=== PATIENT | female | born 1990 | race Caucasian/White ===

== ENCOUNTER → 2018-08-03 | Outpatient (REF) | payer SELFPAY, OTHER | LOC: M LAB REF 18:38 | DX: R10.815 Periumbilic abdominal tenderness (principal) ==

== ENCOUNTER → 2019-11-24 | Outpatient (CLI) | payer OTHER ==
[2019-11-24 18:33] LABS: BASO % 0.2 % (0.0-1.0); EOS % 0.2 % (0.0-3.0); HEMATOCRIT 45.1 % (36.0-47.0); HEMOGLOBIN 15.2 g/dl (12.0-15.5); LYMPH # 2.4 10^3/uL (1.5-5.0); LYMPH % 18.9 % (24.0-44.0); MEAN CORPUSCULAR HEMOGLOBIN 30.2 pg (27.0-33.0); MEAN CORPUSCULAR HGB CONC 33.7 g/dl (32.0-36.5); MEAN CORPUSCULAR VOLUME 89.7 fl (80.0-96.0); MONO # 0.8 10^3/uL (0.0-0.8); MONO % 6.5 % (0.0-5.0); NEUTROPHILS # 9.5 10^3/uL (1.5-8.5); NEUTROPHILS % 73.9 % (36.0-66.0); PLATELET COUNT, AUTOMATED 261 10^3/uL (150-450); RED BLOOD COUNT 5.03 10^6/uL (4.00-5.40); WHITE BLOOD COUNT 12.8 10^3/uL (4.0-10.0)
[2019-11-24 23:40] LABS: CHLAMYDIA DNA AMPLIFICATION NEGATIVE (NEGATIVE); GC DNA AMPLIFICATION NEGATIVE (NEGATIVE)
[2019-11-25 11:19] LABS: HEPATITIS C VIRUS ABY INDEX < 0.0 INDEX (<0.8); HIV 1&2 SCREEN CENTAUR NEGATIVE (NEGATIVE); RUBELLA IgG QUALITATIVE SUSCEPTIBLE (IMMUNE)
== END ==
LOC: M PLALAB 14:10
PROVIDERS: ATTEND Advanced Practice Midwife
DX: Z34.01 Encounter for supervision of normal first pregnancy, first trimester (principal)

== ENCOUNTER → 2020-02-02 | Outpatient (CLI) | payer OTHER ==
--- NOTE | 2020-02-03 04:49 | REP ---
Clinical: Anatomical evaluation. Comparison: None . Findings: Examination demonstrates a single live intrauterine in transverse (with head to maternal left) presentation. motion is identified by technologist. Placenta is noted fundal and grade zero without evidence for placenta previa or abruption. Amniotic fluid volume is normal. Cervix measures 3.4 cm in length and appears closed. No evidence for nuchal cord. Gestational age by current measurements 19 weeks 4 days with HERON 06/24/2020 . FHR equals 138 beats per minute. BPD 4.6 cm 20 weeks 0 days HC 17.0 cm 19 weeks 4 days AC 14.3 cm 19 weeks 4 days FL 3.1 cm 19 weeks 5 days HL 2.9 cm 19 weeks 4 days HC/AC ratio 1.19 Estimated weight 307 grams ( 51st percentile). Anatomical assessment demonstrates normal structures including cranium, choroid plexus, cavum, cerebellum/posterior fossa, facial features, lungs, four-chamber heart/ventricular outflow tracts, diaphragm, stomach, cord insertion/three-vessel cord, kidneys/bladder, spine, and extremities. Impression: Single live intrauterine in transverse lie demonstrating appropriate estimated weight. Anatomical assessment is complete and normal. No gross abnormalities are identified.
== END ==
LOC: M WHC 08:49
PROVIDERS: ATTEND Specialist
DX: Z34.82 Encounter for supervision of other normal pregnancy, second trimester (principal)

== ENCOUNTER → 2020-04-04 | Outpatient (REF) | payer OTHER ==
[2020-04-04 12:11] LABS: HEMATOCRIT 42.8 % (36.0-47.0); HEMOGLOBIN 14.6 g/dl (12.0-15.5); MEAN CORPUSCULAR HEMOGLOBIN 32.2 pg (27.0-33.0); MEAN CORPUSCULAR HGB CONC 34.1 g/dl (32.0-36.5); MEAN CORPUSCULAR VOLUME 94.3 fl (80.0-96.0); PLATELET COUNT, AUTOMATED 246 10^3/uL (150-450); RED BLOOD COUNT 4.54 10^6/uL (4.00-5.40); WHITE BLOOD COUNT 10.3 10^3/uL (4.0-10.0)
== END ==
LOC: M PLALAB 09:04
PROVIDERS: ATTEND Advanced Practice Midwife
DX: Z36.89 Encounter for other specified antenatal screening (principal)
CPT/HCPCS: 36415; 82950; 85027; 86850; 86900; 86901; J2790

== ENCOUNTER → 2020-05-31 | Outpatient (REF) | payer OTHER | LOC: M SFHCWAGY 11:38 | PROVIDERS: ATTEND Advanced Practice Midwife | DX: Z34.80 Encounter for supervision of other normal pregnancy, unspecified trimester (principal); Z3A.00 Weeks of gestation of pregnancy not specified | CPT/HCPCS: 87081; 87186; G0463 ==

== ENCOUNTER 2020-06-29 22:05 | Inpatient (IN) | payer OTHER ==
[~2020-06-29] VITALS: Ht 170.2 cm; Wt 87.7 kg
[2020-06-29 22:27] VITALS: BP 125/80
[2020-06-29] MEDS ORDERED: LACTATED RINGER'S 1000 ML IV STA (23:21)
[2020-06-29] MEDS ORDERED: PENICILLIN G POTASSIUM IV 5 MU in D5W MINI-BAG PLUS 100 ML IV STA (23:21)
[2020-06-29 23:50] LABS: HEMATOCRIT 37.8 % (36.0-47.0); HEMOGLOBIN 13.6 g/dl (12.0-15.5); MEAN CORPUSCULAR VOLUME 88.9 fl (80.0-96.0); PLATELET COUNT, AUTOMATED 212 10^3/uL (150-450); RED BLOOD COUNT 4.25 10^6/uL (4.00-5.40); WHITE BLOOD COUNT 18.4 10^3/uL (4.0-10.0)
[2020-06-29] MEDS: LR 1,000 ML IV SCH (23:50)
[2020-06-30] VITALS (59 sets, daily range): BP systolic 86–137; BP diastolic 44–88
[2020-06-30] MEDS ORDERED: FENTANYL 2MCG/ML ROPIVACAINE 0.2% IN 0.9% NACL 100ML IVBAG As Ordered ONE (00:33)
[2020-06-30] MEDS ORDERED: diphenhydrAMINE 50MG/ML VIAL (J1200) IV PRN (01:17)
[2020-06-30] MEDS ORDERED: FENTANYL/ROPIVACAINE/NACL BAG 100 ML EPIDURAL SCH (01:17)
[2020-06-30] MEDS ORDERED: ePHEDrine SULFATE 25 MG/5 ML(5MG/ML) SYRINGE IV PRN (01:17)
[2020-06-30] MEDS ORDERED: EPIDURAL/PCA KEYS XX PRN (01:17)
[2020-06-30] MEDS ORDERED: EPIDURAL COMMENT XX SCH (01:17)
[2020-06-30] MEDS ORDERED: ONDANSETRON 4MG/2ML VIAL IV PRN (01:17)
[2020-06-30] MEDS ORDERED: REFRIGERATOR IV KEYS XX PRN (01:17)
[2020-06-30] MEDS ORDERED: NALOXONE INJ 0.4MG/1ML VIAL (J2310 PER 1MG) IV PRN (01:17)
[2020-06-30] MEDS ORDERED: LACTATED RINGER'S 1000 ML IV PRN (01:17)
[2020-06-30] MEDS ORDERED: ePHEDrine SULFATE 25 MG/5 ML(5MG/ML) SYRINGE As Ordered ONE (01:30)
[2020-06-30] MEDS: PENICILLIN G POTASSIUM IV 2.5 MU in IV 1 EA IV SCH ×2 (04:27→08:32)
[2020-06-30] MEDS ORDERED: OXYTOCIN 30 UNITS IN 0.9% NaCl 500ML IV BAG (J2590) As Ordered ONE (07:16)
[2020-06-30] MEDS: LR 1,000 ML IV SCH (10:06)
[2020-06-30] MEDS ORDERED: OXYTOCIN DRIP 30 UNITS in IV 1 EA IV SCH (10:48)
[2020-06-30] MEDS ORDERED: RHOGAM 300 MCG (1500 IU) INJ (J2790) IM SCH (11:00)
[2020-06-30] MEDS ORDERED: ANUSOL HC CREAM 30GM TOP PRN (11:00)
[2020-06-30] MEDS ORDERED: DIBUCAINE 1% OINTMENT 30GM TOP PRN (11:00)
[2020-06-30] MEDS ORDERED: MOM 30ML SUSPENSION UDC PO PRN (11:00)
[2020-06-30] MEDS ORDERED: ACETAMINOPHEN TAB 650MG DOSE (2X325MG) PO PRN (11:00)
[2020-06-30] MEDS ORDERED: IBUPROFEN 600MG TAB PO PRN (11:00)
[2020-06-30] MEDS ORDERED: METHYLERGONOVINE MALEATE 0.2 MG TAB PO PRN (11:00)
[2020-06-30] MEDS ORDERED: MEASLES,MUMPS,RUBELLA VACCINE INJ (MMR-II) (90707) SC SCH (11:00)
--- NOTE | 2020-06-30 11:01 | DNPDOC ---
[facility] Delivery Note Delivery Note DATE OF DELIVERY: 06/30/2020 TIME OF : 1030 GENDER: Male. APGARS: 9 and 9. WEIGHT: 2880 grams or 6 pounds 6 ounces. LACERATIONS:. None ANESTHESIA: Epidural. ESTIMATED BLOOD LOSS: 300ml COUNTS: 5 laparotomy sponges accounted for prior to after delivery. DELIVERY NOTE: On 06/30/2020 at 1030, Mrs. Soares a 30-year-old 1 now para 1, had a spontaneous vaginal delivery of viable male infant, Apgars, 9 and 9 and weight 2880 g or 6 lbs. 6 oz. Head was delivered occiput anterior (OA), followed by delivery of the shoulders and corpus. Infant was handed to mom with a good cry. Cord was clamped times two and was cut by the father of baby under my direction. Placenta was then drained and delivered grossly intact. A premixed bag of 500 mL of normal saline with 30 units of Pitocin was then b olused along with uterine massage until the uterus was firm. On inspection, cervix, vagina, perineum was grossly intact and hemostatic. Mom and baby in recovery on stable condition. The couples decided to remain in [facility]. CHIO TAVERA MD. Jun 30, 2020 11:01
[2020-06-30] MEDS: IBUPROFEN 800 MG TAB PO PRN (12:00)
[2020-06-30] MEDS: SLF 3 ML SYR IV SCH ×2 (14:00→23:00)
[2020-06-30] MEDS ORDERED: SLF 3 ML SYR IV PRN (14:00)
[2020-06-30] MEDS: ACETAMINOPHEN 500 MG TAB PO PRN (19:45)
[2020-07-01] MEDS: IBUPROFEN 800 MG TAB PO PRN ×2 (05:41→19:37)
[2020-07-01] MEDS: SLF 3 ML SYR IV SCH ×2 (05:42→21:57)
[2020-07-01 06:00] VITALS: BP 105/55
--- NOTE | 2020-07-01 07:31 | IPNPDOC ---
Progress Note Date of Service: Jul 01, 2020 Day#: 1 Progress Note SUBJECT: Doing well without complaints. Ambulating, voiding and pain is well-c ontrolled. Reports minimal lochia. OBJECTIVE: VITAL SIGNS: Within normal limits, afebrile. Alert and oriented times three. Abdomen: Fundus firm at U-2. Soft, NTTP. Ext: neg calf tenderness. ASSESSMENT: day #1 status post normal spontaneous vaginal delivery. Recovering in stable condition. PLAN: 1. Continue routine care 2. Discharge plans for tomorrow VS, I&O, 24H, Fishbone Vital Signs/I&O Vital Signs Date Time Temp Pulse Resp B/P (MAP) Pulse Ox O2 Delivery O2 Flow Rate FiO2 07/01/20 06:00 97.4 70 18 105/55 (72) 06/30/20 13:25 98 Room Air I&O- Last 24 Hours up to 6 AM 07/01/20 06:00 Intake Total 2325.0 ml Output Total 2350 ml Balance -25.0 ml CHIO TAVERA MD. Jul 01, 2020 07:31
[2020-07-01] MEDS: PRENATAL VITAMINS CHEWABLE TABLET PO SCH (09:18)
[2020-07-01 18:24] VITALS: BP 126/69
[2020-07-01] MEDS: DOCUSATE SODIUM 100 MG CAP PO PRN (19:55)
[2020-07-02 06:00] VITALS: BP 116/67
[2020-07-02] MEDS: SLF 3 ML SYR IV SCH (06:00)
[2020-07-02] MEDS: PRENATAL VITAMINS CHEWABLE TABLET PO SCH (08:40)
[2020-07-02] MEDS: DOCUSATE SODIUM 100 MG CAP PO PRN (08:40)
[2020-07-02] MEDS: ACETAMINOPHEN 500 MG TAB PO PRN (08:41)
--- NOTE | 2020-07-14 13:24 | IPN ---
DATE: 07/01/2020 SUBJECTIVE: This patient and requested circumcision of their male infant. After discussing the risks and benefits of the circumcision, the medical and non-medical indications, the penile block and aftercare, expressed an understanding of penile block, aftercare and bleeding, signed the consent form, all questions were answered; a 20 minute discussion. We await clearance by the bioinformatics team member. MARY KAY
== END 2020-07-02 13:00 | disposition home or self-care (01) | DRG 807 ==
LOC: M LDO 22:05 → M LDI 23:18 → M OBS 06-30 13:35
PROVIDERS: ADMIT Advanced Practice Midwife; ATTEND Obstetrics & Gynecology
PROC: 10E0XZZ Delivery of Products of Conception, External Approach (ICD-10-PCS; principal; 2020-06-30)
DX: O48.0 Post-term pregnancy (principal); Z37.0 Single live birth; Z3A.40 40 weeks gestation of pregnancy; O99.824 Streptococcus B carrier state complicating childbirth

== ENCOUNTER → 2020-09-03 | Outpatient (CLI) | payer OTHER | LOC: M LABSMTC 09:39 | PROVIDERS: ATTEND Pediatrics | DX: Z20.828 Contact with and (suspected) exposure to other viral communicable diseases (principal) ==